=== PATIENT | male | born 2000 | race Two or more races ===

== ENCOUNTER 2022-12-10 13:18 | Emergency (ER) | payer MEDICAID ==
[~2022-12-10] VITALS: Ht 182.9 cm; Wt 88.9 kg
[2022-12-10 14:27] VITALS: BP 108/63
== END 2022-12-10 16:19 | disposition home or self-care (01) ==
LOC: ER 13:18
DX: N43.3 Hydrocele, unspecified (principal); L72.0 Epidermal cyst
CPT/HCPCS: 76870